=== PATIENT | female | born 1980 | race Caucasian/White ===

== ENCOUNTER 2017-04-20 13:28 | Inpatient (IN) | payer OTHER, BC ==
[2017-04-20] MEDS ORDERED: HYDROMORPHONE HCL 2 MG/ML SOL ONE ×2 (14:09→16:46)
[2017-04-20] MEDS: HYDROMORPHONE 1 MG/ML SYRINGE IV PRN ×2 (14:11→16:52)
[2017-04-20] MEDS: SODIUM CHLORIDE 0.9% 1000ML 1,000 ML IV SCH (14:19)
[2017-04-20] MEDS ORDERED: ERTAPENEM SODIUM 1 GM PDS 1 GM in SODIUM CHLORIDE 0.9% 50 ML 50 ML IV SCH (15:15)
[2017-04-20] MEDS: METRONIDAZOLE 500 MG (PREMIX) 500 MG/100 ML SOL IV SCH ×2 (15:34→23:05)
[2017-04-20] MEDS ORDERED: SODIUM CHLORIDE 0.9% 250 ML 250 ML IV ONE (16:46)
[2017-04-20] MEDS ORDERED: LEVOFLOXACIN 25 MG/ML SOL IV ONE (16:46)
[2017-04-20] MEDS: LEVOFLOXACIN 25 MG/ML 750 MG in SODIUM CHLORIDE 0.9% 250 ML 150 ML IV SCH (16:58)
[2017-04-20] MEDS: KETOROLAC TROMETHAMINE 30 MG/ML SOL IV PRN (18:33)
[2017-04-20] MEDS: ACETAMINOPHEN 500 MG 500 MG TAB PO PRN (22:04)
[2017-04-21] MEDS: KETOROLAC TROMETHAMINE 30 MG/ML SOL IV PRN ×3 (05:19→15:56)
[2017-04-21] MEDS: SODIUM CHLORIDE 0.9% 1000ML 1,000 ML IV SCH ×3 (06:06→21:38)
[2017-04-21] MEDS: METRONIDAZOLE 500 MG (PREMIX) 500 MG/100 ML SOL IV SCH ×3 (07:18→23:13)
[2017-04-21] MEDS: ACETAMINOPHEN 500 MG 500 MG TAB PO PRN ×2 (07:22→16:37)
[2017-04-21 07:39] LABS: BASOPHILS % (AUTO) 0 % (0-3); EOSINOPHILS % (AUTO) 0 % (0-9); HEMATOCRIT 34 % (35-47); MONOCYTES % (AUTO) 9.5 % (0-12); NEUTROPHILS % (AUTO) 78.3 % (37-80)
[2017-04-21 07:52] LABS: MEAN CORPUSCULAR VOLUME 81 fL (81-99)
[2017-04-21 07:56] LABS: ALBUMIN 2.9 gm/dl (3.4-5.0); POTASSIUM 3.8 mMol/L (3.5-5.1)
[2017-04-21] MEDS ORDERED: ERTAPENEM SODIUM 1 GM PDS 1 GM in SODIUM CHLORIDE 0.9% 50 ML 50 ML IV SCH (09:00)
[2017-04-21] MEDS ORDERED: HYDROMORPHONE HCL 2 MG/ML SOL ONE (12:38)
[2017-04-21] MEDS: HYDROMORPHONE 1 MG/ML SYRINGE IV PRN (12:40)
[2017-04-21] MEDS ORDERED: SODIUM CHLORIDE 0.9% 250 ML 250 ML IV ONE (16:20)
[2017-04-21] MEDS ORDERED: LEVOFLOXACIN 25 MG/ML SOL IV ONE (16:20)
[2017-04-21] MEDS: LEVOFLOXACIN 25 MG/ML 750 MG in SODIUM CHLORIDE 0.9% 250 ML 150 ML IV SCH (16:31)
[2017-04-22] MEDS: ACETAMINOPHEN 500 MG 500 MG TAB PO PRN ×2 (06:49→21:37)
[2017-04-22 07:21] LABS: BASOPHILS % (AUTO) 0 % (0-3); EOSINOPHILS % (AUTO) 1 % (0-9); HEMATOCRIT 34 % (35-47); MEAN CORPUSCULAR HGB CONC 32.8 gm/dl (32.0-36.0); MONOCYTES % (AUTO) 7.7 % (0-12); NEUTROPHILS % (AUTO) 73.4 % (37-80)
[2017-04-22 07:29] LABS: ALBUMIN 2.9 gm/dl (3.4-5.0); CALCIUM 7.9 mg/dl (8.5-10.1); POTASSIUM 3.8 mMol/L (3.5-5.1)
[2017-04-22] MEDS: KETOROLAC TROMETHAMINE 30 MG/ML SOL IV PRN ×3 (07:34→18:18)
[2017-04-22 07:37] LABS: MEAN CORPUSCULAR VOLUME 81 fL (81-99)
[2017-04-22] MEDS: METRONIDAZOLE 500 MG (PREMIX) 500 MG/100 ML SOL IV SCH (07:39)
[2017-04-22] MEDS: SODIUM CHLORIDE 0.9% FLUSH 10 ML SOL IV PRN ×2 (10:51→12:32)
[2017-04-22] MEDS ORDERED: ERTAPENEM SODIUM 1 GM PDS ONE (12:14)
[2017-04-22] MEDS ORDERED: SODIUM CHLORIDE 0.9% 50 ML 50 ML IV ONE (12:14)
[2017-04-22] MEDS: ERTAPENEM SODIUM 1 GM PDS 1 GM in SODIUM CHLORIDE 0.9% 50 ML 50 ML IV SCH (12:21)
[2017-04-22] MEDS: SODIUM CHLORIDE 0.9% 1000ML 1,000 ML IV SCH ×2 (12:22→22:38)
[2017-04-22] MEDS: ONDANSETRON HCL 4 MG/2 ML SOL IV PRN (13:44)
[2017-04-22 21:41] VITALS: O2SAT 96
[2017-04-23 07:20] LABS: BASOPHILS % (AUTO) 0 % (0-3); EOSINOPHILS % (AUTO) 2 % (0-9); HEMATOCRIT 33 % (35-47); MEAN CORPUSCULAR HGB CONC 33.2 gm/dl (32.0-36.0)
[2017-04-23] MEDS ORDERED: PATIENT EDUCATION 1 MISC PRN (07:22)
[2017-04-23 07:24] LABS: MEAN CORPUSCULAR VOLUME 80 fL (81-99)
[2017-04-23 07:34] LABS: ALBUMIN 2.9 gm/dl (3.4-5.0); POTASSIUM 3.9 mMol/L (3.5-5.1)
[2017-04-23] MEDS ORDERED: ERTAPENEM SODIUM 1 GM PDS ONE (10:42)
[2017-04-23] MEDS ORDERED: SODIUM CHLORIDE 0.9% 50 ML 50 ML IV ONE (10:42)
[2017-04-23] MEDS: SODIUM CHLORIDE 0.9% FLUSH 10 ML SOL IV PRN ×3 (10:52→11:47)
[2017-04-23] MEDS: ERTAPENEM SODIUM 1 GM PDS 1 GM in SODIUM CHLORIDE 0.9% 50 ML 50 ML IV SCH (10:52)
[2017-04-23] MEDS: ONDANSETRON HCL 4 MG/2 ML SOL IV PRN (11:45)
[2017-04-23] MEDS: SODIUM CHLORIDE 0.9% 1000ML 1,000 ML IV SCH (13:05)
[2017-04-23] MEDS: SODIUM CHLORIDE 0.9% FLUSH 10 ML SOL IV SCH ×2 (16:15→23:55)
[2017-04-23 23:55] VITALS: RESP 16
[2017-04-24] MEDS: SODIUM CHLORIDE 0.9% FLUSH 10 ML SOL IV SCH ×2 (06:16→10:20)
[2017-04-24 07:16] LABS: BASOPHILS % (AUTO) 1 % (0-3); EOSINOPHILS % (AUTO) 2 % (0-9); HEMATOCRIT 34 % (35-47); MEAN CORPUSCULAR HGB CONC 32.1 gm/dl (32.0-36.0); MONOCYTES % (AUTO) 9.1 % (0-12); NEUTROPHILS % (AUTO) 65.5 % (37-80)
[2017-04-24 07:29] LABS: MEAN CORPUSCULAR VOLUME 81 fL (81-99)
[2017-04-24 07:30] LABS: CALCIUM 8.3 mg/dl (8.5-10.1); POTASSIUM 3.9 mMol/L (3.5-5.1)
[2017-04-24 08:35] VITALS: BP 130/86; PULSE 73; TEMP 97.6
[2017-04-24] MEDS: ONDANSETRON HCL 4 MG/2 ML SOL IV PRN (10:19)
[2017-04-24] MEDS ORDERED: ERTAPENEM SODIUM 1 GM PDS ONE (10:24)
[2017-04-24] MEDS ORDERED: SODIUM CHLORIDE 0.9% 50 ML 50 ML IV ONE (10:24)
[2017-04-24] MEDS: ERTAPENEM SODIUM 1 GM PDS 1 GM in SODIUM CHLORIDE 0.9% 50 ML 50 ML IV SCH (10:50)
== END 2017-04-24 12:10 | disposition home or self-care (01) | DRG 392 ==
LOC: ACUTE CARE 13:34
PROVIDERS: ADMIT Family Medicine; ATTEND Family Medicine
DX: K57.92 Diverticulitis of intestine, part unspecified, without perforation or abscess without bleeding (principal); R10.32 Left lower quadrant pain; R12 Heartburn; R51 Headache; R42 Dizziness and giddiness
CPT/HCPCS: 36415; 74177; 80048; 80053; 85025; 99070; J1170; J1335; J1885; J1956; J2405; Q9967; J3490

== ENCOUNTER 2017-05-27 08:10 | Day surgery (SDC) | payer OTHER, BC ==
[~2017-05-27 08:10] MED LIST: PROPOFOL 500 MG/50 ML EMU IV ONE
[2017-05-27 08:31] VITALS: RESP 16
[2017-05-27] MEDS ORDERED: LIDOCAINE HCL 1% MPF SOL ONE (09:54)
[2017-05-27 10:08] VITALS: BP 121/85; PULSE 73; TEMP 98; O2SAT 97
== END 2017-05-27 10:30 | disposition home or self-care (01) | DRG 392 ==
LOC: SURG 08:10
PROVIDERS: ATTEND Surgery
DX: K57.30 Diverticulosis of large intestine without perforation or abscess without bleeding (principal); D12.5 Benign neoplasm of sigmoid colon; Z87.19 Personal history of other diseases of the digestive system
CPT/HCPCS: 84703; 99001; J2001; J2704